=== PATIENT | female | born 1990 | race Two or more races ===

== ENCOUNTER 2021-11-24 07:59 | Outpatient (CLI) | payer BC, SELFPAY ==
--- NOTE | ~2021-11-24 | MMUS_ITS ---
EXAMINATION: MM diagnostic paul BI w [place], US breast LT limited HISTORY: Palpable left breast abnormality TECHNIQUE: Additional 3-D tomosynthesis images of the breasts were performed and synthetic 2-D images were generated. CAD analysis was submitted and interpreted. High resolution Limited left breast ultr asound was performed. COMPARISON: No prior studies for comparison. BREAST PARENCHYMAL COMPOSITION: The breasts are extremely dense, which lowers the sensitivity of mamm ography. FINDINGS: MAMMOGRAPHIC FINDINGS: There are no suspicious masses, calcifications or architectural distortion in either breast to sugges t malignancy. ULTRASOUND: Limited left breast ultrasound: Normal heterogeneous echotexture without focal solid or cystic mass. IMPRESSION: 1. No evidence for malignancy in either breast. 2. Recommend follow-up screening mammogram at age 40 unless otherwise clinically indicated. BI-RADS Category 1: Negative Reviewed, dictated and finalized at location A. IMPRESSION: 1. No evidence for malignancy in either breast. 2. Recommend follow-up screening mammogram at age 40 unless otherwise clinicall y indicated. BI-RADS Category 1: Negative
== END 2021-11-24 08:00 ==
PROVIDERS: PCP Nurse Practitioner Obstetrics & Gynecology; Visit Provider Nurse Practitioner Obstetrics & Gynecology
DX: N63.20 Unspecified lump in the left breast, unspecified quadrant (principal)
CPT/HCPCS: 76642; 77062; 77066; G0279

== ENCOUNTER 2021-12-15 15:43 | Emergency (ER) | payer SELFPAY ==
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
[2021-12-15 15:46] VITALS: BP 119/80; PULSE 80; RESP 16; TEMP 36.9; O2SAT 100
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
[2021-12-15 16:39] LABS: Basophils Absolute Auto 0.1 K/mm3 (0.0-0.1); Eosinophils Absolute Auto 0.1 K/mm3 (0-0.3); Eosinophils Percent Auto 0.8 % (0-4.4); Hemoglobin 13.6 g/dL (12.0-15.0); Immature Granulocyte Absolute 0.15 K/mm3 (0.00-0.031); Immature Granulocyte Percent A 1.4 % (0-0.5); Lymphocytes Absolute Auto 3.16 K/mm3 (0.9-3.2); Lymphocytes Percent Auto 28.5 % (18.3-44.2); Mean Corpuscular HGB Conc 33.2 g/dl (32-36); Mean Corpuscular Hemoglobin 30.5 pg (26-34); Mean Corpuscular Volume 91.9 fl (80-100); Mean Platelet Volume 10.3 fl (7.4-10.4); Monocytes Absolute Auto 0.8 K/mm3 (0.1-0.6); Neutrophils Absolute Auto 6.8 K/mm3 (1.3-6.7); Neutrophils Percent Auto 61.3 % (45.5-73.1); Platelet Count Result 305 k/mm3 (150-375); Red Blood Count 4.46 M/mm3 (4.2-5.4); Red Cell Distribution Width 13.2 % (11.5-14.5); White Blood Count 11.1 K/mm3 (4.5-10.0)
[2021-12-15 16:41] LABS: Add Urine Microscopic? YES; Appearance Urine Clear (Clear); Bilirubin Urine Negative (Negative); Blood Urine Negative (Negative); Color Urine Yellow (Yellow); Glucose Urine UA Negative (Negative); Ketones Urine Negative (Negative); Leukocyte Esterase Ur Trace LEU/UL (Negative); Nitrate Urine Negative (Negative); Protein Urine Negative (Negative); Urobilinogen Urine 0.2 mg/dL (<2.0)
[2021-12-15 16:45] LABS: Bacteria Urine Trace /hpf; Mucus Urine Rare /lpf; RBC Urine 0-2 /hpf (0-2); Squamous Epithelial Cell Urine Many /hpf (Few); WBC Urine 0-3 /hpf
[2021-12-15 16:50] LABS: Alanine Aminotransferase 62 U/L (4-35); Albumin Level 4.4 g/dL (3.5-5.1); Alkaline Phosphatase 85 U/L (38-126); Anion Gap 8 mmol/L (8-16); Aspartate Amino Transferase 83 U/L (14-36); Bilirubin,Total 0.3 mg/dL (0.2-1.3); Blood Urea Nitrogen 18 mg/dL (7-17); Calcium 8.8 mg/dL (8.4-10.2); Carbon Dioxide 27 mmol/L (22-30); Chloride 103 mmol/L (98-107); Estimated CRCL calculation 69 ml/min; Estimated Glomerular Filt Rate > 60; Glucose 97 mg/dL (65-110); Potassium 3.9 mmol/L (3.4-5.0); Prothrombin Time 12.8 Seconds (11.1-14.7); Sodium 138 mmol/L (137-145)
[2021-12-15 16:52] LABS: Partial Thromboplastin Time 28.4 SECONDS (22.3-36.8)
[2021-12-15 18:32] VITALS: BP 115/73; PULSE 62; RESP 16; O2SAT 100
== END 2021-12-15 18:33 | disposition home or self-care (01) ==
PROVIDERS: Physician Assistant; Emergency Provider Emergency Medicine
DX: M79.652 Pain in left thigh (principal); M79.651 Pain in right thigh; R10.30 Lower abdominal pain, unspecified; S29.9XXA Unspecified injury of thorax, initial encounter; R74.01 Elevation of levels of liver transaminase levels; V49.50XA Passenger injured in collision with unspecified motor vehicles in traffic accident, initial encounter
CPT/HCPCS: 36415; 71260; 72129; 72132; 73552; 74177; 80053; 81001; 81025; 85025; 85610; 85730; 96365; 99284; J0131; Q9967

== ENCOUNTER 2022-02-14 09:23 | Emergency (ER) | payer SELFPAY ==
--- NOTE | 2022-02-14 09:39 | ECG_ITS ---
Measurements Intervals [place] Rate: 65 P: 52 TN: 149 QRS: 63 QRSD: 85 T: 39 QT: 399 QTc: 416 Interpretive Statements SINUS RHYTHM NORMAL ECG NO PREVIOUS ECG AVAILABLE FOR COMPARISON Electronically Signed On 02-14-2022 10:34:15 CDT by Marco A Hernandez M.D.
[2022-02-14 09:42] VITALS: BP 109/68; PULSE 67; RESP 16; TEMP 36.6; O2SAT 100
[2022-02-14 10:04] VITALS: BP 114/80; PULSE 61; RESP 13; O2SAT 100
[2022-02-14] MEDS: SODIUM CHLORIDE 0.9% IV 1,000 ML 999 ML IV CONT (10:25)
--- NOTE | 2022-02-14 10:25 | ED.ANXIETY ---
HPI - Anxiety General Chief Complaint: Anxiety Stated Complaint: anxiety Time Seen by Provider: 02/14/22 09:56 Source: patient Mode of arrival: ambulatory Limitations: no limitations History of Present Illness HPI narrative: 32-year-old female presents today from work with complaints of tingling to the entire body. Patient states she was at work doing okay when she went to try to go cool off. She went into the bathroom put a cool towel on her then she started noticing her entire body tingling. Patient was aware of everything that was going on. States she was dizzy and lightheaded. Says her family stated that she went unconscious. But patient denies that. Patient says she was breathing fast and felt like her tongue was swollen but has not. Patient denies history of panic attacks but does have anxiety and has been on sertraline 100 mg for over a year. Patient states she has never had anything like today happened to her. Patient denies any increased stressors or anything abnormal out of her day today. Patient does appear pale at current time. Patient denies any recent illness, sore throat, cough, runny nose, nausea, vomiting, diarrhea, last menstrual period over a year ago, patient is on Depo. Related Data Home Medications Medication Instructions Recorded Confirmed sertraline 100 mg tablet tablet 02/14/22 Allergies Allergy/AdvReac Type Severity Reaction Status Date / Time No Known Allergies Allergy Verified 02/14/22 09:55 Review of Systems Review of Systems: CONSTITUTIONAL: Denies fever, chills, or sweats. EYES: Denies visual changes, redness, or discharge. ENT: Denies rhinorrhea, congestion, sore throat, or otalgia. CARDIOVASCULAR: Denies chest pain, palpitations, or edema. RESPIRATORY: Denies cough or dyspnea. GASTROINTESTINAL: Denies abdominal pain, nausea, vomiting, or diarrhea. GENITOURINARY: Denies dysuria or hematuria. SKIN: Denies rash or itching. MUSCULOSKELETAL: Denies back pain, joint pain, or myalgia. NEUROLOGIC: Tingly all over. Denies headache, numbness, dizziness, or weakness. PSYCHIATRIC: Denies anxiety or depression. [facility] Past Medical History Medical History (Updated 02/14/22 @ 11:25 by Maricarmen Damon APRN) Anxiety History of depression Social History Social History (Reviewed 06/15/22 @ 10:28 by MARY Burr Smoking status: Never smoker Exam Narrative: GENERAL: ill-appearing, well-nourished, and in no acute distress. HEAD: Normocephalic, atraumatic. EYES: PERRLA and EOMI. ENT: Nares clear, no rhinorrhea or epistaxis. Mucous membranes moist. Oropharynx without tonsillar hypertrophy exudate or other lesions. Bilateral TMs pearly perez nonbulging NECK: Supple. No adenopathy or masses. No carotid bruits or JVD CHEST: Clear to auscultation. No respiratory distress. No wheezes rales or rhonchi HEART: Regular rate and rhythm. No murmur heard. Normal peripheral pulses. ABDOMEN: Soft, nontender, nondistended, normal active bowel sounds. EXTREMITIES: Normal range of motion. No edema. SKIN: Pale. Warm, dry, no rash. NEURO: No focal deficits. Alert and oriented x3. PSYCH: Normal mood and affect. Course Course Emergency Course: Patient with noted improvement after medications. Patient appears well and in no distress. Patient no longer pale. Patient ready for discharge. Reviewed discharge medications and need for follow-up. Reevaluation(s) Reevaluation #1: Patient with improvement after medications. Denies any tingling at this time. Date: 02/14/22 Time: 11:25 Vital Signs Vital signs: Vital Signs Temperature 36.6 C 02/14/22 09:42 Pulse Rate 67 02/14/22 09:42 Respiratory Rate 16 02/14/22 09:42 Blood Pressure 109/68 02/14/22 09:42 Pulse Oximetry 100 02/14/22 09:42 Oxygen Delivery Room Air 02/14/22 09:42 Temperature 36.6 C 02/14/22 09:42 Pulse Rate 62 02/14/22 11:45 Respiratory Rate 16 02/14/22 11:45 Blood Pressure 105/80 01/31
[2022-02-14] MEDS: hydrOXYzine HCL 25 MG TABLET PO (10:26)
[2022-02-14 10:42] VITALS: BP 103/76; BP 118/74; BP 118/78; PULSE 57; PULSE 60; PULSE 62
[2022-02-14 10:42] LABS: Basophils Absolute Auto 0.1 K/mm3 (0.0-0.1); Basophils Percent Auto 0.6 % (0.2-1.2); Eosinophils Percent Auto 0.1 % (0-4.4); Hematocrit 40.1 % (37.0-47.0); Hemoglobin 13.4 g/dL (12.0-15.0); Immature Granulocyte Absolute 0.05 K/mm3 (0.00-0.031); Immature Granulocyte Percent A 0.4 % (0-0.5); Lymphocytes Absolute Auto 1.51 K/mm3 (0.9-3.2); Lymphocytes Percent Auto 13.4 % (18.3-44.2); Mean Corpuscular HGB Conc 33.4 g/dl (32-36); Mean Corpuscular Hemoglobin 30.7 pg (26-34); Mean Platelet Volume 10.4 fl (7.4-10.4); Monocytes Absolute Auto 0.7 K/mm3 (0.1-0.6); Monocytes Percent Auto 6.4 % (2.6-8.5); Neutrophils Absolute Auto 8.9 K/mm3 (1.3-6.7); Neutrophils Percent Auto 79.1 % (45.5-73.1); Platelet Count Result 302 k/mm3 (150-375); Red Blood Count 4.36 M/mm3 (4.2-5.4); White Blood Count 11.3 K/mm3 (4.5-10.0)
[2022-02-14 10:45] VITALS: BP 103/76; PULSE 59; RESP 18; O2SAT 98
[2022-02-14 10:50] LABS: Appearance Urine Clear (Clear); Bilirubin Urine Negative (Negative); Blood Urine Negative (Negative); Color Urine Yellow (Yellow); Glucose Urine UA Negative (Negative); Ketones Urine Negative (Negative); Leukocyte Esterase Ur Negative LEU/UL (Negative); Nitrate Urine Positive (Negative); Protein Urine Negative (Negative); Specific Grav Ur 1.015 (1.001-1.035); Urobilinogen Urine 0.2 mg/dL (<2.0); pH Urine 6.5 (5.0-9.0)
[2022-02-14 10:53] LABS: Alanine Aminotransferase 21 U/L (6-35); Albumin Level 4.7 g/dL (3.5-5.1); Alkaline Phosphatase 77 U/L (38-126); Anion Gap 12 mmol/L (8-16); Aspartate Amino Transferase 30 U/L (14-36); Bilirubin,Total 0.6 mg/dL (0.2-1.3); Blood Urea Nitrogen 14 mg/dL (7-17); Calcium 9.6 mg/dL (8.4-10.2); Carbon Dioxide 18 mmol/L (22-30); Chloride 109 mmol/L (98-107); Estimated CRCL calculation 77 ml/min; Estimated Glomerular Filt Rate > 60; Glucose 107 mg/dL (65-110); Potassium 3.7 mmol/L (3.4-5.0); Sodium 139 mmol/L (137-145)
[2022-02-14 11:04] LABS: Add Urine Microscopic? YES
[2022-02-14 11:06] LABS: Bacteria Urine Trace /hpf; Mucus Urine Rare /lpf; Squamous Epithelial Cell Urine Rare /hpf (Few); WBC Urine 0-3 /hpf
[2022-02-14 11:45] VITALS: BP 105/80; PULSE 62; RESP 16; O2SAT 100
== END 2022-02-14 11:46 | disposition home or self-care (01) ==
PROVIDERS: Emergency Provider Nurse Practitioner Family
DX: F41.9 Anxiety disorder, unspecified (principal); F32.9 Major depressive disorder, single episode, unspecified
CPT/HCPCS: 36415; 80053; 81001; 81025; 85025; 93005; 96360; 99283; A9270; J7030

== ENCOUNTER → 2022-03-16 12:26 | Outpatient (CLI) | payer OTHER, SELFPAY ==
--- NOTE | ~2022-03-16 | DEXA_ITS ---
Bone Density Report Name: ELBERT WILDE Age: 32 Sex: Female Ethnicity: Date of : 1990 Indication: Encounter for screening for osteoporosis Referring Provider: Mireya, Evangelina Ricardo Study: Bone densitometry was performed. Exam Date: March 16, 2022 Accession number: [id number] Bone Density: Region BMD T-score Z-score Classification AP Spine (L1-L4) 0.872 -1.6 -1.5 Osteopenia Femoral Neck (Left) 0.674 -1.6 -1.7 Osteopenia Total Hip (Left) 0.792 -1.2 -1.3 Osteopenia Femoral Neck (Right) 0.646 -1.8 -1.9 Osteopenia Total Hip (Right) 0.752 -1.6 -1.6 Osteopenia Total Hip Mean 0.772 -1.4 -1.5 Osteopenia World Health Organization criteria for BMD impression classify patients as: Normal (T-score at or above -1.0), Osteopenia (T-score between -1.0 and -2.5), or Osteoporosis (T-score at or below -2.5). 10-year Fracture Risk(1): Major Osteoporotic Fracture 1.3% Hip Fracture 0.2% Reported Risk Factors: [place] (), Neck BMD=0.646, BMI=22.4 Input outside FRAX(R) limits. Adjusted to:Age=40 (1) FRAX(R) Version 3.08. Fracture probability calculated for an untreated patient. Fracture probability may be lower if the patient has received treatment. Clinical Information Provided by Patient: Patient maximum height was 62 No regular weight bearing exercise Drinks caffeinated beverages Onset of menses at age 8 Premenopausal Number of children 2 Missed period for more than 6 months in a row Impression: The patient's bone mass is within expected range for age, gender and ethnicity. The patient has an estimated ten-year risk of hip fracture of 0.2% and an estimated ten-year risk of major fracture of 1.3%, based on the WHO FRAX algorithm. Discussion: BONE DENSITY IS WITHIN EXPECTED LIMITS FOR AGE, SEX AND RACE. Bone density is within expected limits for age, sex and race at all sites measured. The patient should follow a healthful lifestyle (good nutrition with adequate calcium and vitamin D, and appropriate weight-bearing exercise). Follow-Up: Consider repeating this study in 2 to 3 years to reassess this patient's status, or sooner if there is some new clinical indication. Reported by: [facility] on 03/16/2022 1:08:00 PM. Reviewed, dictated and finalized at location [facility] [employer]
== END ==
PROVIDERS: PCP Nurse Practitioner Obstetrics & Gynecology; Visit Provider Nurse Practitioner Obstetrics & Gynecology
DX: Z13.820 Encounter for screening for osteoporosis (principal); M85.88 Other specified disorders of bone density and structure, other site; M85.852 Other specified disorders of bone density and structure, left thigh; M85.851 Other specified disorders of bone density and structure, right thigh
CPT/HCPCS: 77080

== ENCOUNTER 2024-11-03 00:56 | Day surgery (SDC) | payer OTHER, SELFPAY ==
--- NOTE | 2024-10-21 14:19 | SUR.PREOP ---
Report to the Outpatient Waiting Room, entrance under the green pavilion located off [facility], at time _0830_ on date _11/03/2024_. Planned Procedure Time: _1030_.? Time changes happen often and if your time is changed the preop area will call you the afternoon before. - You and your visitor will be asked to self-screen and do not enter if you have any COVID symptoms. Please call surgeon if you need to reschedule. - A mask is optional within the hospital at this time. Patients may have clear liquids (water, carbonated beverages, clear teas, apple juice) until 3 hours (0730) prior to surgery with a maximum of 20 ounces. - No food from midnight until time of surgery and no smoking, or chewing tobacco (or any form of nicotine). No chewing gum, candy or mints. - Infants may have breast milk until 4 hours before surgery, infant formula 6 hours prior to surgery. - Children will be allowed to drink immediately following surgery.? If applicable, please bring a bottle or sippy cup to assist with drinking. Juice, water, soda, and popsicles are readily available.? For infants on formula, please bring formula the day of surgery.? Pacifiers are allowed. Take only the following medications with a SIP of water on the morning of surgery: _sertraline_ DO NOT STOP ANY OF YOUR OTHER PRESCRIPTION MEDICATIONS PRIOR TO SURGERY EXCEPT THE FOLLOWING Hold all vitamins and supplements for 3 days per anesthesiologist. Medications to discontinue per physician _NA_ Date to take last dose_NA_ Please no make-up, nail italian, hairspray, perfume, deodorant, or body powder the day of surgery.? No jewelry (including any body piercings) or valuables the day of surgery, leave them at home.? Please take a shower or bath the night before, or the morning of, surgery with an antibacterial soap.? Wear comfortable, loose fitting clothing.? Children are encouraged to wear pajamas. - Jewelry must be removed prior to entering the operating room.? Rings and piercings that are not removed may be cut off. - The hospital will not accept responsibility for valuables.? - Please leave all valuables, including medications, at home the day of surgery. If you are going home after surgery, a licensed water truck driver must drive you home.? - NO public transportation without another adult if you receive anesthesia. - We recommend that an adult stay with you for 24 hours following discharge. - We also recommend that you do not drive, make important decision, drink alcoholic beverages, or take any drugs that were not prescribed by your health care provider for at least 24 hours after your discharge time. For Pediatric surgeries, we recommend two adults accompany the child home. Follow any additional instructions given to you from your surgeon. Telephone instructions given to _Shannon_and asked if any additional questions and then verbalized understanding. Patient advised to call surgeon office or pre surgery nurse liaison [phone] if any additional questions.
[2024-10-21 14:28] VITALS: BMI 24.3
[2024-11-03] VITALS (7 sets, daily range): BP systolic 98–116; BP diastolic 62–83; PULSE 55–75; RESP 12–18; TEMP 36.4–37.2; O2SAT 99–100; BMI 22.7
[2024-11-03] MEDS: LACTATED RINGERS 1,000 ML 30 ML IV CONT (08:45)
[2024-11-03] MEDS: KETOROLAC 15 MG/ML VIAL (*BKC) IV PUSH (08:46)
[2024-11-03] MEDS: ACETAMINOPHEN 500 MG TABLET 1000 MG PO (08:46)
[2024-11-03 08:59] LABS: BEDSIDEPREGUCG Negative (Negative)
--- NOTE | 2024-11-03 09:23 | PM.IMHP ---
H&P: HPI History of Present Illness Date/Time: 11/03/24 09:23 Chief Complaint: Heavy vaginal bleeding Narrative: This patient is a 34-year-old female with severe menorrhagia. We have agreed to perform laparoscopic bilateral salpingectomy with endometrial ablation and hysteroscopy. The patient understands the details of the procedure. The procedure has been explained in detail. She understands the risks. She understands that injuries may occur that result in hospitalization, more surgery, and severe illness. She understands risk of hemorrhage and infection. She denies any chest pain or shortness of breath. She denies any nausea, vomiting, fever, chills. Review of Systems Review of Systems: All systems reviewed & are unremarkable except as noted in HPI and below Constitutional: Constitutional: Denies chills, Denies fatigue, Denies fever(s) and Denies weakness Eyes: Eyes: Denies blurry vision, Denies change in vision, Denies loss of peripheral vision, Denies loss of vision, Denies other visual disturbances and Denies eye pain ENT: Denies vertigo, Denies dizziness, Denies hearing loss, Denies mouth pain, Denies nasal obstruction, Denies neck mass and Denies neck pain Cardiovascular: Cardiovascular: Denies chest pain, Denies diaphoresis, Denies syncope, Denies leg edema and Denies dyspnea Respiratory: Respiratory: Denies chest congestion, Denies cough, Denies hemoptysis, Denies dyspnea and Denies wheezing Gastrointestinal: Gastrointestinal: Denies abdominal pain, Denies constipation, Denies diarrhea, Denies nausea and Denies vomiting Genitourinary: Genitourinary: Denies hematuria, Denies change in libido, Denies nocturia, Denies genital lesions, Denies flank pain and Denies urinary urgency Musculoskeletal: Musculoskeletal: Denies abnormal gait, Denies back pain, Denies myalgias, Denies arthralgias, Denies joint swelling, Denies muscle weakness and Denies neck pain Integumentary/Breasts: Skin/Breast: Denies swelling, Denies breast pain, Denies breast mass, Denies dry skin, Denies nipple discharge, Denies unusual bruising and Denies jaundice Neurologic: Denies Neuro-related abnormal movements, Denies Abnormal speech present, Denies abnormal gait, Denies behavioral changes, Denies confusion, Denies vertigo, Denies dizziness, Denies syncope, Denies loss of vision, Denies memory loss, Denies convulsions and Denies weakness Psychiatric: Psychiatric: Denies abnormal sleep pattern, Denies behavioral changes, Denies change in libido, Denies confusion, Denies depression, Denies anhedonia and Denies memory loss Endocrine: Endocrine: Reports no additional endocrine complaints, Denies change in libido and Denies fatigue Hematologic/Lymphatic: Hematologic/Lymphatic: Reports no additional hematologic/lymphatic complaints Allergic/Immunologic: Allergic/Immunologic: Reports no additional allergic/immunologic complaints and Denies wheezing PMFSH Past Medical History Medical History (Updated 11/03/24 @ 09:25 by Bharat Tapia MD) Anxiety History of depression Social History Social History Smoking status: Never smoker Second hand tobacco smoke exposure: No Substance use: current Substance use type: marijuana Other substance usage details: smoked marijuana daily Last use: 10-21-24 Living arrangements: with family Additional living arrangements comments: with parents and children Spiritual care concerns: No Meds Home Medications and Allergies Home Medications ?Medication ?Instructions ?Recorded ?Confirmed ?Type sertraline 100 mg tablet 100 mg PO DAILY 02/14/22 11/03/24 History Allergies Allergy/AdvReac Type Severity Reaction Status Date / Time No Known Allergies Allergy Verified 11/03/24 08:49 Vital Signs Vital Signs - 24 hr 11/03/24 08:30 Temperature 98.9 F Pulse Rate 65 Respiratory Rate 18 Blood Pressure 113/75 Pulse Oximetry 99 Oxygen Delivery Room Air Exam Const: General: cooperative, healthy appearing, comfortable and no acute distress Orientation/consciousness: oriented to person, oriented to place and oriented to time HENMT: Head: normal to inspection Ears: external ears normal Face/Nose/Sinus: Normal external nose present and normal facial exam Face and sinus: normal facial exam Eyes: General: appearance normal, both eyes and all related structures Neck: Neck: normal visual inspection, trachea midline and supple Resp: Auscultation: clear to auscultation bilaterally, no crackles, no rales, no rhonchi and no wheezes Cardio: Rate: regular rate Rhythm: regular rhythm Heart sounds: no click, no murmurs and no rubs GI: GI Palp: No abdominal tenderness, No Soft to palpation, No Tenderness to palpation present (GI) and No Palpable mass present Auscultation: normal bowel sounds Skin: General skin exam: normal color and no rashes or lesions noted Neuro: General: oriented to person, oriented to place and oriented to time Extrem: General: normal to inspection, no joint enlargement, no clubbing, cyanosis or edema, no pedal edema and no calf tenderness Psych: Appearance: grossly normal Mental Status: mental status grossly normal Speech and movement: Normal speech and movement present Assessment and Plan Assessment and plan (1) Menorrhagia: Code(s): N92.0 - Excessive and frequent menstruation with regular cycle Status: Acute (2) Encounter for female sterilization procedure: Code(s): Z30.2 - Encounter for sterilization Status: Acute Plan This patient is a 34-year-old female with severe menorrhagia and unwanted fertility. We have agreed perform laparoscopic bilateral salpingectomy and endometrial ablation with hysteroscopy. She understands risks, benefits, and alternatives. She has completed informed consent process is ready to proceed.
--- NOTE | 2024-11-03 09:24 | WPDANESEPPF ---
Anes - Initial Pre Proc Eval Procedure: Operation Date: 11/03/24 10:30 Proposed Procedures p Hysteroscopy with Radha Endometrial Ablation, Laparoscopic Bilateral Salpingectomy - Bharat Tapia MD Date/Time: 11/03/24 09:24 Surgeon: Bharat Tapia MD Pre Op Diagnosis: Menorrhagia, Female Sterilization Patient Data Age: 34 Gender: F Height: 1.6 m Weight: 58.2 kg Last Vital Signs Temp 37.2 C 11/03/24 08:30 Pulse 65 11/03/24 08:30 Resp 18 11/03/24 08:30 BP 113/75 11/03/24 08:30 Pulse Ox 99 11/03/24 08:30 O2 Del Method Room Air 11/03/24 08:30 Allergies Allergy/AdvReac Type Severity Reaction Status Date / Time No Known Allergies Allergy Verified 11/03/24 08:49 Home Medications ?Medication ?Instructions ?Recorded ?Confirmed ?Type sertraline 100 mg tablet 100 mg PO DAILY 02/14/22 11/03/24 History Laboratory Tests 11/03/24 08:30 POC Urine HCG, Qual Negative (Negative) Patient hx anesthesia problems: none Family hx anesthesia problems: none Results Review: All pre-operative results and documents have been reviewed as part of the pre-operative evaluation. [facility] Past Medical History Medical History Anxiety History of depression Social History Social History Smoking status: Never smoker Second hand tobacco smoke exposure: No Substance use: current Substance use type: marijuana Other substance usage details: smoked marijuana daily Last use: 10-21-24 Living arrangements: with family Additional living arrangements comments: with parents and children Spiritual care concerns: No Anes - Eval Final PreProcedure Day of Procedure 11/03/24 09:24 Patient weight: normal Heart: regular rate and rhythm Lungs: clear to auscultation Airway: Mallampati scale class 1 Neurological: alert and oriented Last oral intake: >/= 8 hours ASA classification: II Emergent: no Anesthetic plan: proceed Anesthesia type and monitoring: general GIVS and standard monitoring Results Review: All pre-operative results and documents have been reviewed as part of the pre-operative evaluation. Informed Consent: The patient's anesthetic plan and its attendant risks and benefits were discussed with the patient/family/POA. Questions were solicited and answers provided to the satisfaction of the patient/family/POA.
--- NOTE | 2024-11-03 09:26 | WPDHPUPDATE1 ---
History and Physical Update Update Date/Time: 11/03/24 09:26 History and Physical has been reviewed, including an updated exam of the patient. There are NO changes in the patient's condition. Risks, benefits, and alternatives have been discussed and questions answered. Patient agrees to proceed with procedure.
--- NOTE | 2024-11-03 10:32 | W.PM.PROC2 ---
Procedure Note - Detailed Date of Procedure 11/03/24 Pre-op Diagnosis Menorrhagia, Female Sterilization Post-op Diagnosis Same Procedure Performed endometrial ablation with hysteroscopy d&c Surgeon Bharat Tapia MD Anesthesia MAC Indications Severe menorrhagia Findings Normal vulva vagina and cervix. Normal endometrium. Description of Procedure The patient was taken to the operating room. She was prepped and draped in the dorsal lithotomy position after induction of mac anesthesia. A speculum was placed in the vagina. Cervix grasped with a tenaculum. The cervix was dilated to about 1 cm. The hysteroscope was inserted. The above findings were noted. Endometrial curettage was performed with a medium-size curette. All surfaces of the endometrium were affected by the curettage. The specimens were collected and sent to pathology. Measurements were taken of the uterus and cervix. The uterine length was then entered into the hand piece of the Radha device. The device was inserted into the intrauterine cavity. The array of the device was expanded. The balloon cuff was inflated. A good seal was achieved. The energy and safety cycles were initiated and completed. The array was collapsed and the instrument was withdrawn after deflating the balloon cuff. Hysteroscope was reinserted. Above findings were noted. The hysteroscope was removed. The patient tolerated the procedure well. The speculum and tenaculum were removed. She was taken to recovery in stable condition. Sponge lap and needle counts were correct x2. Estimated Blood Loss 15 Pathology Yes Complications No immediate complications Condition Stable Disposition Same day
[2024-11-03] MEDS: HYDROmorphone HCL INJ (*CRX) 1 MG/ML SYR 0.5 MG IV PUSH ×2 (11:02→11:08)
[2024-11-03] MEDS: oxyCODONE HCL (*CRX) 5 MG TAB IR PO (11:29)
== END 2024-11-03 12:08 | disposition home or self-care (01) ==
PROVIDERS: Visit Provider Obstetrics & Gynecology
PROC: 0UDB8ZZ Extraction of Endometrium, Via Natural or Artificial Opening Endoscopic (ICD-10-PCS; CPT 58558; principal; 2024-11-03 10:30)
DX: Z30.2 Encounter for sterilization (principal); G89.18 Other acute postprocedural pain; F41.9 Anxiety disorder, unspecified; F32.A Depression, unspecified; F12.90 Cannabis use, unspecified, uncomplicated
CPT/HCPCS: 58563; 88302; 88305; A9270; J1100; J1171; J1885; J2003; J2250; J2405; J2704; J3010; J7030; J7120

== ENCOUNTER 2025-04-09 09:42 | Outpatient (CLI) | payer OTHER, SELFPAY ==
--- OUTSIDE RECORDS SUMMARY | 2025-04-09 09:45 | XMS_ITS | Clinical Summary ---
Author Organization [facility] Address [address] [place] [address] Care Team Providers Care Communication Assistant Name Role Phone Velia Way MEKAAna Primary Care Provider [phone] Allergies No known active allergies Medications promethazine 25 MG tablet Take 25 mg by mouth every 6 (six) hours as needed for Nausea. Active Encounters Date Type Department Care Team Description 03/06/2025 9:43 AM CDT - 03/06/2025 10:21 AM CDT Emergency [facility] Emergency Room [address] [place] [address] Renae Benavides MD Possible Hernia Discharge Disposition: Home or Self Care (Routine Discharge) 03/06/2025 Travel from Last 3 Months Social History Tobacco Use Types Packs/Day Years Used Date Smoking Tobacco: Never Smokeless Tobacco: Never Alcohol Use Standard Drinks/Week Comments No 0 (1 standard drink = 0.6 oz pur e alcohol) Comments No Sex and Gender Information Value Date Recorded Sex Assigned at Female 03/06/2025 9:55 AM CDT Legal Sex Female 7:54 PM CDT Gender Identity Not on file Sexual Orientation Not on file Last Filed Vital Signs Vital Sign Reading Time Taken Comments Blood Pressure 137/92 03/06/2025 9:49 AM CDT Pulse 71 03/06/2025 9:49 AM CDT Temperature 37.1 C (98.7 F) 03/06/2025 9:49 AM CDT Respiratory Rate 16 03/06/2025 9:49 AM CDT Oxygen Saturation 97% 03/06/2025 9:49 AM CDT Inhaled Oxygen Concentration - - Weight 58.1 kg (128 lb) 03/06/2025 9:49 AM CDT Height 157.5 cm (5' 2) 03/06/2025 9:49 AM CDT Body Mass Index 23.41 03/06/2025 9:49 AM CDT Plan of Treatment Health Maintenance Due Date Last Done Comments Cervical Cancer Screening Pa p Smear (Age 30 to 64) Every 3 Years 1988 Annual Physical 01/02/1991 Hepatitis C 01/02/2006 Hepatitis B Vaccines (1 of 3 - 19+ 3-dose series) 01/02/2007 HPV Vaccines (1 - 3-dose SCD M series) 01/02/2015 Cervical Cancer Screening Pa p with HPV Testing (Age 30 to 64) Every 5 Years 01/02/2018 Cervical Cancer Screening with HPV 01/02/2018 COVID-19 Vaccine (2 - 2023-2 5 season) 2024 01/13/2021 DTaP, Tdap and Td Vaccines ( 2 - Td or Tdap) 12/08/2034 12/08/2024 Meningococcal B Vaccine Aged Out No l onger eligible based on patient's age to complete this topic Meningococcal Vaccine Aged Out No jeny domenic eligible based on patient's age to complete this topic Pneumococcal Vaccine: Pediat rics (0 to 5 Years) and At-Risk Patients (6 to 49 Years) Aged Out No longer eligi ble based on patient's age to complete this topic RSV Immunizations Under 20 Months Aged Out No longer eligible based on patient's age to complete this topic Insurance [address] [place] [address] [employer] Care Teams Communication Assistant Relationship Specialty Start Date End Date Velia Way CNM [address] [place] [id number] PCP - General [employer] PRACTICE CERAMIC TILER 01/19/18
--- OUTSIDE RECORDS SUMMARY | 2025-04-09 09:45 | XMS_ITS | Clinical Summary ---
Author Organization [facility] [employer] Address [address] [place] [address] Care Team Providers Care Psychiatric Nurse Practitioner Name Role Phone Unavailable Primary Care Provider Unavailabl e Source Comments [facility] [employer],non-owned Affiliates and Associated Physician Practices is amultiple site organization consisting of ambulatory clinics and hospital sitesin [place], [place], [place] and [place]. This disclosure is being madepursuant to the Care Everywhere program and may not contain all information available regarding this patient. Last updated 18.[facility] [employer] Social History Tobacco Use Types Packs/Day Years Used Date Smoking Tobacco: Never Assessed Comments No Sex and Gender Information Value Date Recorded Sex Assigned at Not on file Legal Sex Female 11:24 AM CDT Gender Identity Not on file Sexual Orientation Not on file Plan of Treatment Health Maintenance Due Date Last Done Comments HIV SCREENING 01/02/2003 HEPATITIS C SCREENING 12/29/2005 DTAP/TDAP/TD VACCINES (1 - Tdap) 01/02/2007 HEPATITIS B VACCINE (1 of 3 - 19+ 3-dose series) 01/02/2007 PAP SMEAR 01/02/2009 HPV VACCINE (1 - 3-dose SCDM series) 01/02/2015 COVID-19 VACCINE (2023-2 5 season) 2024 DEPRESSION SCREENING 09/02/2024 INFLUENZA VACCINE (#1) 2025 ZOSTER VACCINE (1 of 2) 01/02/2038 HIB VACCINE Aged Out No longer eligi ble based on patient's age to complete this topic MENINGOCOCCAL (Group B) VACC INE SHARED DECISION-MAKING Aged Out No longer eligibl e based on patient's age to complete this topic MENINGOCOCCAL GROUPS A/C/Y/W VACCINE Aged Out No longer eligible b ased on patient's age to complete this topic PNEUMOCOCCAL VACCINE Aged Out No long er eligible based on patient's age to complete this topic Insurance [facility] SELF PAY NO INSURANCE Member Subscriber Plan / Payer (Ef fective for All Dates) Name:Elbert Wilde Member ID:Not on file Relation to Subscriber:Not on file Name:ELBERT WILDE Subscriber ID:Not on file (Home) Address: [address] [place] [address] Payer ID:Not on file Group ID:Not on file Type:Self Pay Address: [place], [place]
--- OUTSIDE RECORDS SUMMARY | 2025-04-09 09:45 | XMS_ITS | Clinical Summary ---
Author Organization [facility] Address [address] [place] [address] Care Team Providers Care Glass Checker Name Role Phone Unavailable Primary Care Provider Unavailabl e Allergies No known active allergies Medications No known medications Active Problems No known active problems Encounters Date Type Department Care Team Description 04/06/2025 External Device Data [facility] ABSTRACTION Provider, Abstract 03/17/2025 External Device Data [facility] ABSTRACTION Provider, Abstract 03/17/2025 External Device Data [facility] ABSTRACTION Provider, Abstract 02/23/2025 External Device Data [facility] ABSTRACTION Provider, Abstract 02/16/2025 External Device Data [facility] ABSTRACTION Provider, Abstract 01/26/2025 External Device Data [facility] ABSTRACTION Provider, Abstract 01/20/2025 External Device Data [facility] ABSTRACTION Provider, Abstract 01/20/2025 External Device Data [facility] ABSTRACTION Provider, Abstract from Last 3 Months Immunizations Immunization Administration Dates Next Due (ADACEL/BOOSTRIX)(10 YR UP) TDAP VACCINE, 0.5ML, IM 12/08/2024 Social History Tobacco Use Types Packs/Day Years Used Date Smoking Tobacco: Never Assessed Comments Unknown Sex and Gender Information Value Date Recorded Sex Assigned at Not on file Legal Sex Female 11:34 AM CDT Gender Identity Not on file Sexual Orientation Not on file Last Filed Vital Signs Vital Sign Reading Time Taken Comments Blood Pressure 127/78 12/08/2024 11:54 AM CDT Pulse 73 12/08/2024 11:54 AM CDT Temperature 36.3 C (97.4 F) 12/08/2024 11:54 AM CDT Respiratory Rate 16 12/08/2024 11:54 AM CDT Oxygen Saturation 99% 12/08/2024 11:54 AM CDT Inhaled Oxygen Concentration - - Weight 61.2 kg (135 lb) 12/08/2024 11:54 AM CDT Height - - Body Mass Index - - Plan of Treatment Health Maintenance Due Date Last Done Comments HPV VACCINES (1 - 3-dose series) 01/02/2003 HEPATITIS B VACCINES (1 of 3 - 19+ 3-dose series) 10/2006 HPV/Cotest (21-29) 01/02/2009 HPV/Cotest (30-65) 01/02/2018 INFLUENZA VACCINE (#1) 2025 CERVICAL CANCER SCREENING 09/09/2027 PAP SMEAR 09/09/2027 09/09/2024 DTAP/TDAP/TD VACCINES (2 - Td or Tdap) 12/08/2034
--- OUTSIDE RECORDS SUMMARY | 2025-04-09 09:45 | XMS_ITS | Clinical Summary ---
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 Gender Identity Not on file Sexual Orientation Not on file Plan of Treatment Health Maintenance Due Date Last Done Comments Hepatitis C Virus (HCV) Screening 1988 Hepatitis B Immunization (1 of 3 - 19+ 3-dose series) 01/02/2007 Pap Smear 01/02/2009 Human Papillomavirus (HPV) Immunization (1 - 3-dose SCDM series) 01/02/2015 Cervical Cancer Screening (CCS) 01/02/2018 HPV/Cotest 01/02/2018 SARS-COV-2 Immunization ( season) 2024 Influenza Immunization (#1) 2025 06/02/2018 Respiratory Syncytial Virus (RSV) Immunization (Adult) (1 - 1-dose 75+ series) 01/02/2063 DTaP/Tdap/Td Immunization Discontinued 06/02/2018 TdaP Immunization Completed 06/02/2018 Meningococcal Immunization (ACWY) Aged Out No longer eligible based on patient's age to complete this topic Pneumococcal Immunization Combined Aged Out No longer eligible based on patient's age to complete this topic Rotavirus Immunization Aged Out No lo nger eligible based on patient's age to complete this topic Insurance [employer] on file
[2025-04-09 10:23] LABS: Hematocrit 41.8 % (37.0-47.0); Hemoglobin 14.1 g/dL (12.0-15.0); Immature Granulocyte Percent A 0.2 % (0-0.5); Lymphocytes Absolute Auto 2.51 K/mm3 (0.9-3.2); Mean Corpuscular HGB Conc 33.7 g/dl (32-36); Mean Corpuscular Hemoglobin 30.6 pg (26-34); Mean Corpuscular Volume 90.7 fl (80-100); Nucleated Red Blood Cells Absolute Auto 0.000 K/mm3 (0.0-0.012); Nucleated Red Blood Cells Perc 0.0 % (0.0-0.2); Platelet Count Result 281 k/mm3 (150-375); Red Blood Count 4.61 M/mm3 (4.2-5.4); White Blood Count 8.0 K/mm3 (4.5-10.0)
== END 2025-04-09 09:43 | disposition home or self-care (01) ==
LOC: ANHLAB 09:43
PROVIDERS: PCP Nurse Practitioner Family; Visit Provider Surgery
DX: K42.9 Umbilical hernia without obstruction or gangrene (principal); Z01.818 Encounter for other preprocedural examination
CPT/HCPCS: 36415; 85025; 86850; 86900; 86901

== ENCOUNTER 2025-04-16 06:46 | Day surgery (SDC) | payer OTHER, SELFPAY ==
[2025-04-06 10:22] VITALS: BMI 23.3
--- NOTE | 2025-04-06 10:28 | PC.NURSE ---
Report to the Outpatient Waiting Room, entrance under the green pavilion located off [facility], at time __1100_ on date __04/16/25. Planned Procedure Time: _1300__.? Time changes happen often and if your time is changed the preop area will call you the afternoon before. - You and your visitor will be asked to self-screen and do not enter if you have any COVID symptoms. Please call surgeon if you need to reschedule. - A mask is optional within the hospital at this time. Patients may have clear liquids (water, carbonated beverages, clear teas, apple juice) until 3 hours prior to surgery with a maximum of 20 ounces. - No food from midnight until time of surgery and no smoking, or chewing tobacco (or any form of nicotine). No chewing gum, candy or mints. - Infants may have breast milk until 4 hours before surgery, infant formula 6 hours prior to surgery. - Children will be allowed to drink immediately following surgery.? If applicable, please bring a bottle or sippy cup to assist with drinking. Juice, water, soda, and popsicles are readily available.? For infants on formula, please bring formula the day of surgery.? Pacifiers are allowed. Take only the following medications with a SIP of water on the morning of surgery: BUPROPION DO NOT STOP ANY OF YOUR OTHER PRESCRIPTION MEDICATIONS PRIOR TO SURGERY EXCEPT THE FOLLOWING Hold all vitamins and supplements for 3 days per anesthesiologist. Medications to discontinue per physician Date to take last dose Please no make-up, nail icelandic, hairspray, perfume, deodorant, or body powder the day of surgery.? No jewelry (including any body piercings) or valuables the day of surgery, leave them at home.? Please take a shower or bath the night before, or the morning of, surgery with HIBICLENS antibacterial soap.? Wear comfortable, loose fitting clothing.? Children are encouraged to wear pajamas. - Jewelry must be removed prior to entering the operating room.? Rings and piercings that are not removed may be cut off. - The hospital will not accept responsibility for valuables.? - Please leave all valuables, including medications, at home the day of surgery. If you are going home after surgery, a licensed power screwdriver operator must drive you home.? - NO public transportation without another adult if you receive anesthesia. - We recommend that an adult stay with you for 24 hours following discharge. - We also recommend that you do not drive, make important decision, drink alcoholic beverages, or take any drugs that were not prescribed by your health care provider for at least 24 hours after your discharge time. For Pediatric surgeries, we recommend two adults accompany the child home. Follow any additional instructions given to you from your surgeon. Telephone instructions given to _PATIENT_and asked if any additional questions and then verbalized understanding. Patient advised to call surgeon office or pre surgery nurse liaison [phone] if any additional questions.
[2025-04-16] VITALS (10 sets, daily range): BP systolic 122–142; BP diastolic 63–93; PULSE 59–81; RESP 12–18; TEMP 36.4–36.6; O2SAT 97–100
--- OUTSIDE RECORDS SUMMARY | 2025-04-16 06:48 | XMS_ITS | Clinical Summary ---
Author Organization 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
--- OUTSIDE RECORDS SUMMARY | 2025-04-16 06:48 | XMS_ITS | Clinical Summary ---
Author Organization [facility] Address [address] [place] [address] Care Team Providers Care Vba Developer Name Role Phone Velia Way MEKAAna Primary Care Provider [phone] Allergies No known active allergies Medications promethazine 25 MG tablet Take 25 mg by mouth every 6 (six) hours as needed for Nausea. Active Encounters Date Type Department Care Team Description 03/06/2025 9:43 AM CDT - 03/06/2025 10:21 AM CDT Emergency [facility] Emergency Room [address] [place] [address] Renae Benavides MD Possible Hernia Discharge Disposition: [...] to complete this topic Insurance [address] [place] [address] [employer] Care Teams Vba Developer Relationship Specialty Start Date End Date Velia Way CNM [address] [place] [id number] PCP - General [facility] PRACT[facility] OUTREACH DIRECTOR 01/19/18
--- OUTSIDE RECORDS SUMMARY | 2025-04-16 06:48 | XMS_ITS | Clinical Summary ---
Author Organization [facility] [employer] Address [address] [place] [address] Care Team Providers Care Mobile Application Development Lead Name Role Phone Unavailable Primary Care Provider Unavailabl e Source Comments [facility] [employer],non-owned Affiliates and Associated Physician Practices is amultiple site organization consisting of ambulatory clinics and hospital sitesin [place], [place], [place] and [place]. This disclosure is being madepursuant to the Care Everywhere program and may not contain all information available regarding this patient. Last updated 18.[facility] [employer] Social History Tobacco Use Types Packs/Day Years [...] 3 - 19+ 3-dose series) 01/02/2007 HPV VACCINE (1 - 3-dose SCDM series) 01/02/2015 COVID-19 VACCINE ( - 2023-2 5 season) 2024 DEPRESSION SCREENING 09/02/2024 INFLUENZA [...] patient's age to complete this topic Insurance [facility] SELF PAY NO INSURANCE Member Subscriber Plan / Payer (Ef fective for All Dates) Name:Elbert Wilde Member ID:Not on file Relation to Subscriber:Not on file Name:ELBERT WILDE Subscriber ID:Not on file (Home) Address: [address] [place] [address] Payer ID:Not on file Group ID:Not on file Type:Self Pay Address: [place], [place]
--- OUTSIDE RECORDS SUMMARY | 2025-04-16 06:48 | XMS_ITS | Clinical Summary ---
Author Organization [facility] Address [address] [place] [address] Care Team Providers Care Logistics Lead Name Role Phone Unavailable Primary Care [...]
[2025-04-16 07:39] LABS: BEDSIDEPREGUCG Negative (Negative)
[2025-04-16] MEDS: ACETAMINOPHEN 500 MG TABLET 1000 MG PO (07:45)
[2025-04-16] MEDS: KETOROLAC 15 MG/ML VIAL (*BKC) IV PUSH ×2 (07:50→14:24)
[2025-04-16] MEDS: LACTATED RINGERS 1,000 ML 30 ML IV CONT ×2 (07:50→12:42)
--- NOTE | 2025-04-16 09:17 | SUR.PREOP ---
PT INFORMED OF SURGERY TIME DELAY, DENIES NEEDS AT THIS TIME
--- NOTE | 2025-04-16 09:31 | P.PNAN_ITS ---
Anes - Initial Pre Proc Eval Procedure: Operation Date: 04/16/25 09:30 Proposed Procedures p Robotic Assisted Umbilical Hernia Repair with Mesh - Syed Levin MD Date/Time: 04/16/25 09:31 Surgeon: Syed Levin MD Pre Op Diagnosis: Umbilical Hernia Patient Data Age: 35 Gender: F Height: 1.57 m Weight: 55.5 kg Last Vital Signs Temp 97.9 F 04/16/25 07:12 Pulse 59 L 04/16/25 07:12 Resp 18 04/16/25 07:12 BP 125/81 04/16/25 07:12 Pulse Ox 100 04/16/25 07:12 O2 Del Method Room Air 04/16/25 07:12 Allergies Allergy/AdvReac Type Severity Reaction Status Date / Time No Known Allergies Allergy Verified 04/06/25 10:21 Home Medications ?Medication ?Instructions ?Recorded ?Confirmed ?Type bupropion HCl 150 mg 24 hr tablet, 150 mg PO QAM #90 tabs 03/24/25 04/06/25 Rx extended release (Wellbutrin XL) ciprofloxacin HCl 500 mg tablet 500 mg PO Q12H #14 tabs 03/24/25 04/06/25 Rx Laboratory Tests 04/16/25 07:36 POC Urine HCG, Qual Negative (Negative) Patient hx anesthesia problems: none Family hx anesthesia problems: none Results Review: All pre-operative results and documents have been reviewed as part of the pre- operative evaluation. [facility] Past Medical History Medical History Menorrhagia Anxiety History of depression Surgical History Surgical History Hx of prior ablation treatment 2024 History of bilateral tubal ligation 2024 with uterine ablation Family History Family History Grandparent Leukemia Heart disease Grandparent Diabetes mellitus Hypertension Social History Social History Smoking status: Former smoker Tobacco type: e-cigarettes/vaping Second hand tobacco smoke exposure: No Additional smoking assessment comments: RARE USE FOR 1 YR Alcohol intake: never Substance use: current Substance use type: marijuana Other substance usage details: smoked marijuana daily Last use: 2 MONTHS AGO Do You Feel Safe in your Home?: Yes Lack of Transportation: No Lack of Food: Never True Current Housing: I Have Housing Concerned About Future Housing: No Difficulty Paying Gas/Electric Bills: No Difficulty Paying for Meds: No Currently Unemployed: No Education: Trade/Vocational Certificate Difficulty w/ Childcare or Family Care: No Living arrangements: with family Additional living arrangements comments: with parents and children Spiritual care concerns: No Agree to blood products: Yes Anes - Eval Final PreProcedure Day of Procedure 04/16/25 09:31 Patient weight: normal Lungs: normal air movement Airway: Mallampati scale class II Neurological: alert and oriented Last oral intake: >/= 8 hours ASA classification: II Emergent: no Anesthetic plan: proceed Anesthesia type and monitoring: general ETT and standard monitoring Results Review: All pre-operative results and documents have been reviewed as part of the pre- operative evaluation. Pt smokes on average 3 cigs/week. Overall active, no cp or sob w 1-2 fos. Informed Consent: The patient's anesthetic plan and its attendant risks and benefits were discussed with the patient/family/POA. Questions were solicited and answers provided to the satisfaction of the patient/family/POA.
--- NOTE | 2025-04-16 09:53 | WPDHPUPDATE1 ---
History and Physical Update Update Date/Time: 04/16/25 09:53 History and Physical has been reviewed, including an updated exam of the patient. There are NO changes in the patient's condition. Risks, benefits, and alternatives have been discussed and questions answered. Patient agrees to proceed with procedure.
[2025-04-16] MEDS: ceFAZolin 2 GM in SODIUM CHLORIDE 0.9% IV 50 ML 100 ML IVPB (10:27)
[2025-04-16] MEDS: BUPIVACAINE/EPINEPHRINE 0.5% 50 ML VIAL 30 ML INFILTRATE (11:00)
--- NOTE | 2025-04-16 12:49 | P.OP_ITS ---
Procedure Note - Detailed Date of Procedure 04/16/25 Pre-op Diagnosis Umbilical Hernia with 1.5 cm defect Post-op Diagnosis Other (Umbilical hernia with 5 cm defect) Procedure Performed Robotic laparoscopic repair umbilical hernia with 5 cm defect with mesh Surgeon Syed Levin MD Manager Fine Dining Naty COFFMAN, Liyah COFFMAN Anesthesia General and Local Indications Patient has a protruding umbilical hernia that developed during . It has not gone away and is sometimes bothersome. It will occasionally incarcerated requiring her lie down and reduce the hernia. By examination she had a 1.5 cm defect. She is taken to surgery now for robotic laparoscopic repair. Findings The palpable defect was about 2 cm firs in size, however there was a more cephalad opening, just above the main defect, that tunneled even more cephalad. The overall length of the repair required was 5 cm. The repair was performed in craniocaudad closure. Description of Procedure Patient was taken to surgery and induced into general anesthesia. She was positioned in the usual fashion, prep and drape was carried out. Local anesthetic was infiltrated just under the left costal margin. Incision was made and applied Medical optical trocar was placed in the abdominal cavity. Adequate insufflation was carried out in the hernia defect was noticed. The remaining 2 robotic trocars were then placed under direct visualization. Also, the 5 mm trocar was replaced with an 8 mm robotic trocar under direct visualization. The robot was then brought into the field. The camera was docked and targeted. The operating arms were docked and the instruments positioned appropriately. The surgeon then went to the robotic console. Dissection was started just above the hernia defect by dividing the midline preperitoneal fat. We worked from the left side towards the midline and then to the right side. The preperitoneal fat and the lower portion of the falciform were taken down on so that we would have direct apposition of the mesh to the abdominal wall. As we progressed caudally, we came to the area of the hernia defect. The contents of the hernia defect were slowly reduced, taking great care not to injure the umbilical skin. The hernia sac and properitoneal fat were reduced. It was at this time that I was able to see the 2nd defect mentioned above. The lower defect was about 2 cm in diameter. The 2nd defect was above the main hernia defect but, after placing an instrument in the defect, it was noted to new tunnel cephalad. This entire area was an additional defect and could become quite a large defect. The area needing repair was 5 cm, more than I had anticipated from her abdominal exam. Once the properitoneal fat had been removed from the anterior abdominal wall over an area where the mesh would be placed, I then used 0 Stratafix suture and closed this entire hernia defect from cephalad to caudad. I then introduced a 15 x [address] hernia mesh into the abdomen. The mesh was unrolled and the Stratafix needle was passed through the center of the mesh. The mesh was then worked up to the abdominal wall and held in place by the Stratafix. It was positioned appropriately. I then used the Stratafix needle to hold it in place. Two 0 V lock suture were then introduced. The V lock suture were used to secure the mesh circumferentially around the perimeter of the mesh suturing mesh to the abdominal wall. The mesh was sutured in a fashion show that it was under mild degree of tension. Some residual Stratafix was then used to suture more of the center of the mesh to the anterior abdominal wall for better apposition. When this was completed, all looked good. We removed the suture needles. The instruments were then removed and the robot was undocked. We evacuated CO2 and then the trocars were removed. Skin wounds were closed with subcuticular 4-0 Monocryl skin suture. The wounds were dressed with Exofin surgical adhesive. The patient was awakened and taken to recovery in good condition. Sponge and needle counts were correct x2. Implants 15 x [address] hernia mesh Estimated Blood Loss -5 Drains No Packing No Pathology None sent Complications None Condition Stable Disposition PACU [facility] Billing Surgery - Charge Forward: Surgery Billing (Robotic laparoscopic repair 5 cm umbilical hernia with mesh)
[2025-04-16] MEDS: fentaNYL CITRATE INJ (*CRX) 100 MCG/2 ML VIAL 25 MCG IV PUSH ×7 (13:03→14:04)
[2025-04-16] MEDS: oxyCODONE HCL (*CRX) 5 MG TAB IR PO (14:19)
== END 2025-04-16 15:25 | disposition home or self-care (01) ==
PROVIDERS: PCP Nurse Practitioner Family; Visit Provider Surgery
PROC: (CPT 49593; principal; 2025-04-16 09:30)
DX: K42.9 Umbilical hernia without obstruction or gangrene (principal); G89.18 Other acute postprocedural pain; F41.9 Anxiety disorder, unspecified; F32.A Depression, unspecified; F12.90 Cannabis use, unspecified, uncomplicated; Z98.51 Tubal ligation status; Z87.891 Personal history of nicotine dependence; Z80.6 Family history of leukemia; Z82.49 Family history of ischemic heart disease and other diseases of the circulatory system
CPT/HCPCS: 49593; S2900; J0690; A9270; J1100; J1885; J2003; J2250; J2405; J2704; J3010; J7120

== ENCOUNTER 2025-04-26 15:51 | Outpatient (CLI) | payer OTHER, SELFPAY ==
--- NOTE | ~2025-04-26 | CT_ITS ---
EXAMINATION: CT abdomen pelvis wo con, 04/26/2025 15:05 CDT HISTORY: R11.0 - Nausea COMPARISON: Comparison 12/15/2021. TECHNIQUE: CT scan of the abdomen and pelvis was performed without IV contrast. One or more of the following dose reduction techniques were used: automated exposure control, adjustment of the mA and/or kV according to patient size, use of iterative reconstruction technique. Unless otherwise stated, incidental findings do not require dedicated follow up imaging FINDINGS: CT abdomen: LUNG BASES: The lung bases are clear. The visualized portions of the heart and pericardium are unremarkable. LIVER: Unremarkable, liver contours intact, no lesions. SPLEEN: Unremarkable, no splenomegaly. KIDNEYS: Right Kidney: Unremarkable. No calculi. No hydronephrosis. Left Kidney: Unremarkable. No calculi. No hydronephrosis ADRENAL GLANDS: Unremarkable. PANCREAS: Unremarkable. GALLBLADDER/BILIARY: The gallbladder is contracted. STOMACH AND ESOPHAGUS: Visualized stomach and esophagus within normal limits. BOWEL/MESENTERY: Moderate fecal content throughout the large bowel, colitis or diverticulitis. Appendix is air-filled. Mesentery normal. No dilated small bowel loops. ADENOPATHY/RETROPERITONEUM: No lymphadenopathy. AORTA/VASCULATURE: Normal caliber aorta. FREE FLUID OR FREE AIR: [id number] amount of free fluid in the pelvis.. CT pelvis: SOLID ORGANS/REPRODUCTIVE: There is no adnexal mass. BLADDER: Within normal limits. OSSEOUS STRUCTURES: No acute osseous abnormality.No suspicious lesions. OVERLYING SOFT TISSUES: Postsurgical changes abdominal wall. Within the abdominal wall superior to the umbilicus there is a small fluid collection measuring 1 x 1 cm. IMPRESSION: 1. Small air-fluid collection within the anterior abdominal wall possibly a small seroma or abscess, clinical correlation is required. Follow-up is recommended to assess resolution. The follow-up exam should ideally be obtained with intravenous and oral contrast. 2. Moderate amount of free fluid more than expected physiologically. Findings may relate to a ruptured cyst. Pelvic ultrasound is suggested as clinically warranted. Reviewed, dictated and finalized at location A. IMPRESSION: 1. Small air-fluid collection within the anterior abdominal wall possibly a sma ll seroma or abscess, clinical correlation is required. Follow-up is recommende d to assess resolution. The follow-up exam should ideally be obtained with intr avenous and oral contrast. 2. Moderate amount of free fluid more than expected physiologically. Findings m ay relate to a ruptured cyst. Pelvic ultrasound is suggested as clinically nitish anted.
--- OUTSIDE RECORDS SUMMARY | 2025-04-26 15:09 | XMS_ITS | Clinical Summary ---
Author Organization [facility] Address [address] [place] [address] Care Team Providers Care Dining Room Manager Name Role Phone Velia Way MEKAAna Primary Care Provider [phone] Allergies No known active allergies Medications promethazine 25 MG tablet Take 25 mg by mouth every 6 (six) hours as needed for Nausea. Active Encounters Date Type Department Care Team Description 03/06/2025 9:43 AM CDT - 03/06/2025 10:21 AM CDT Emergency [facility] Emergency Room [address] [place] [address] Renae Benavides MD Possible Hernia Discharge Disposition: [...] to complete this topic Insurance [address] [place] [address] [employer] Care Teams Dining Room Manager Relationship Specialty Start Date End Date Velia Way CNM [address] [place] [id number] PCP - General ADVANCED PRACTICE CASUALTY CLAIMS SUPERVISOR 01/19/18
--- OUTSIDE RECORDS SUMMARY | 2025-04-26 15:09 | XMS_ITS | Clinical Summary ---
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
--- OUTSIDE RECORDS SUMMARY | 2025-04-26 15:09 | XMS_ITS | Clinical Summary ---
Author Organization [facility] Address [address] [place] [address] Care Team Providers Care Administrative Underwriter Name Role Phone Unavailable Primary Care Provider Unavailabl e Source Comments [facility],non-owned Affiliates and Associated Physician Practices is amultiple site organization consisting of ambulatory clinics and hospital sitesin [place], [place], [place] and [place]. This disclosure is being madepursuant to the Care Everywhere program and may not contain all information available regarding this patient. Last updated 18.[facility] Social History Tobacco Use Types Packs/Day Years [...] patient's age to complete this topic Insurance [facility] SELF PAY NO INSURANCE Member Subscriber Plan / Payer (Ef fective for All Dates) Name:Elbert Wilde Member ID:Not on file Relation to Subscriber:Not on file Name:ELBERT WILDE Subscriber ID:Not on file (Home) Address: [address] [place] [address] Payer ID:Not on file Group ID:Not on file Type:Self Pay Address: [place], [place]
--- OUTSIDE RECORDS SUMMARY | 2025-04-26 15:09 | XMS_ITS | Clinical Summary ---
Author Organization [facility] Address [address] [place] [address] Care Team Providers Care Senior Staff Specialized Employment Name Role Phone Unavailable Primary Care Provider Unavailabl e Allergies No known active allergies Medications No known medications Active Problems No known active problems Encounters Date Type Department Care Team Description 04/21/2025 External Device Data [facility] ABSTRACTION Provider, Abstract 04/20/2025 External Device Data [facility]CTION Provider, Abstract 04/06/2025 External Device Data [facility]CTION Provider, [...]
--- OUTSIDE RECORDS SUMMARY | 2025-04-26 15:53 | XMS_ITS | Clinical Summary ---
Author Organization [facility] Address [address] [place] [address] Care Team Providers Care Keymodule Assembly Machine Tender Name Role Phone Unavailable Primary Care Provider Unavailabl e Source Comments [facility],non-owned Affiliates and Associated Physician Practices is amultiple site organization consisting of ambulatory clinics and hospital sitesin [place], [place], [place] and [place]. This disclosure is being madepursuant to the Care Everywhere program and may not contain all information available regarding this patient. Last updated 18.[facility] Social History Tobacco Use Types Packs/Day Years [...] patient's age to complete this topic Insurance [facility] SELF PAY NO INSURANCE Member Subscriber Plan / Payer (Ef fective for All Dates) Name:Elbert Wilde Member ID:Not on file Relation to Subscriber:Not on file Name:ELBERT WILDE Subscriber ID:Not on file (Home) Address: [address] [place] [address] Payer ID:Not on file Group ID:Not on file Type:Self Pay Address: [place], [place]
--- OUTSIDE RECORDS SUMMARY | 2025-04-26 15:53 | XMS_ITS | Clinical Summary ---
Author Organization [facility] Address [address] [place] [address] Care Team Providers Care Jet Piercer Operator Name Role Phone Unavailable Primary Care Provider [...]
--- OUTSIDE RECORDS SUMMARY | 2025-04-26 15:53 | XMS_ITS | Clinical Summary ---
Author Organization 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
[2025-04-26 16:55] LABS: Hematocrit 35.6 % (37.0-47.0); Hemoglobin 11.7 g/dL (12.0-15.0); Immature Granulocyte Percent A 0.6 % (0-0.5); Lymphocytes Absolute Auto 2.45 K/mm3 (0.9-3.2); Mean Corpuscular HGB Conc 32.9 g/dl (32-36); Mean Corpuscular Hemoglobin 30.3 pg (26-34); Mean Corpuscular Volume 92.2 fl (80-100); Nucleated Red Blood Cells Absolute Auto 0.000 K/mm3 (0.0-0.012); Nucleated Red Blood Cells Perc 0.0 % (0.0-0.2); Platelet Count Result 327 k/mm3 (150-375); Red Blood Count 3.86 M/mm3 (4.2-5.4); White Blood Count 10.9 K/mm3 (4.5-10.0)
== END 2025-04-26 15:52 | disposition home or self-care (01) ==
PROVIDERS: PCP Nurse Practitioner Family; Visit Provider Surgery
DX: R11.0 Nausea (principal); Z98.890 Other specified postprocedural states
CPT/HCPCS: 36415; 74176; 85025

== ENCOUNTER 2025-05-04 09:28 | Outpatient (CLI) | payer OTHER, SELFPAY ==
--- OUTSIDE RECORDS SUMMARY | 2025-05-04 09:43 | XMS_ITS | Clinical Summary ---
Author Organization [facility] Address [address] [place] [address] Care Team Providers Care Molten Iron Pourer Name Role Phone Unavailable Primary Care Provider Unavailabl e Source Comments [facility],non-owned Affiliates and Associated Physician Practices is amultiple site organization consisting of ambulatory clinics and hospital sitesin [place], [place], [place] and [place]. This disclosure is being madepursuant to the Care Everywhere program and may not contain all information available regarding this patient. Last updated 18.[facility] Social History Tobacco Use Types Packs/Day Years [...] patient's age to complete this topic Insurance [facility] SELF PAY NO INSURANCE Member Subscriber Plan / Payer (Ef fective for All Dates) Name:Elbert Wilde Member ID:Not on file Relation to Subscriber:Not on file Name:ELBERT WILDE Subscriber ID:Not on file (Home) Address: [address] [place] [address] Payer ID:Not on file Group ID:Not on file Type:Self Pay Address: [place], [place]
--- OUTSIDE RECORDS SUMMARY | 2025-05-04 09:43 | XMS_ITS | Clinical Summary ---
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
--- OUTSIDE RECORDS SUMMARY | 2025-05-04 09:43 | XMS_ITS | Clinical Summary ---
Author Organization [facility] Address [facility] [place] [address] Care Team Providers Care Lip Cutter Name Role Phone Velia Way MEKAAna Primary Care Provider [phone] Allergies No known active allergies Medications promethazine 25 MG tablet Take 25 mg by mouth every 6 (six) hours as needed for Nausea. Active Encounters Date Type Department Care Team Description 03/06/2025 9:43 AM CDT - 03/06/2025 10:21 AM CDT Emergency [facility] Emergency Room [address] [place] [address] Renae Benavides MD Possible Hernia Discharge Disposition: [...] to complete this topic Insurance [address] [place] [address] [employer]MENTS OF [employer] Care Teams Lip Cutter Relationship Specialty Start Date End Date Velia Way CNM [address] [place] [id number] PCP - General ADVANCED PRACTICE BINITROTOLUENE OPERATOR 01/19/18
--- OUTSIDE RECORDS SUMMARY | 2025-05-04 09:43 | XMS_ITS | Clinical Summary ---
Author Organization [facility] Address [address] [place] [address] Care Team Providers Care Engineering Administrator Name Role Phone Unavailable Primary Care Provider [...] Health Maintenance Due Date Last Done Comments HEPATITIS B VACCINES (1 of 3 - 19+ 3-dose series) 10/2006 HPV/Cotest (21-29) 01/02/2009 HPV VACCINES (1 - 3-dose SCDM series) 01/02/2015 HPV/Cotest (30-65) 01/02/2018 INFLUENZA VACCINE (#1) 2025 CERVICAL CANCER SCREENING 09/09/2027 PAP SMEAR 09/09/2027 09/09/2024 DTAP/TDAP/TD VACCINES (2 - Td or Tdap) 12/08/2034
[2025-05-04 09:58] LABS: Hematocrit 37.9 % (37.0-47.0); Hemoglobin 12.1 g/dL (12.0-15.0); Immature Granulocyte Percent A 0.6 % (0-0.5); Lymphocytes Absolute Auto 2.46 K/mm3 (0.9-3.2); Mean Corpuscular HGB Conc 31.9 g/dl (32-36); Mean Corpuscular Hemoglobin 30.0 pg (26-34); Mean Corpuscular Volume 94.0 fl (80-100); Nucleated Red Blood Cells Absolute Auto 0.000 K/mm3 (0.0-0.012); Nucleated Red Blood Cells Perc 0.0 % (0.0-0.2); Platelet Count Result 381 k/mm3 (150-375); Red Blood Count 4.03 M/mm3 (4.2-5.4); White Blood Count 8.8 K/mm3 (4.5-10.0)
== END 2025-05-04 09:29 | disposition home or self-care (01) ==
LOC: ANHLAB 09:29
PROVIDERS: PCP Nurse Practitioner Family; Visit Provider Surgery
DX: D64.9 Anemia, unspecified (principal); R11.0 Nausea; Z98.890 Other specified postprocedural states; R68.81 Early satiety
CPT/HCPCS: 36415; 85025